=== PATIENT | female | born 1955 | race Caucasian/White ===

== ENCOUNTER → 2017-07-02 | Outpatient (CLI) | payer OTHER ==
[~2017-07-02] MED LIST: ASPI-621 PO; GLUC15006 PO; OMEP-110 PO; RED600TA PO; ROSU20TA PO; TICA90TA PO
[2017-07-02 09:03] LABS: BASOPHILS # (AUTO) 0.03 x10^3/uL (0-0.1); BASOPHILS % (AUTO) 0 % (0-1); EOSINOPHILS # (AUTO) 0.14 x10^3/uL (0-0.4); EOSINOPHILS % (AUTO) 2 % (1-7); LYMPHOCYTES # (AUTO) 2.18 x10^3/uL (1-3.4); LYMPHOCYTES % (AUTO) 30 % (22-44); MD NO; MEAN CORPUSCULAR HEMOGLOBIN 29.7 pg (27.0-34.8); MEAN CORPUSCULAR HGB CONC 33.6 g/dL (32.4-35.8); MEAN CORPUSCULAR VOLUME 88.2 fL (80-100); MEAN PLATELET VOLUME 9.2 fL (7.4-10.4); MONOCYTES # (AUTO) 0.49 x10^3/uL (0.2-0.8); MONOCYTES % (AUTO) 7 % (2-9); NEUTROPHILS # (AUTO) 4.34 x10^3/uL (1.8-6.8); NEUTROPHILS % (AUTO) 61 % (42-75); PLATELET COUNT 217 x10^3/uL (130-400); RED BLOOD COUNT 5.46 x10^6/uL (3.82-5.3); RED CELL DISTRIBUTION WIDTH 13.1 % (9.6-15.2)
[2017-07-02 09:13] LABS: ANION GAP 10 mmol/L (5-15); CALCIUM 8.9 mg/dL (8.5-10.1); CHLORIDE 106 mmol/L (98-107); CREATININE 0.91 mg/dL (0.55-1.02)
== END | disposition home or self-care (01) ==
LOC: STAR 08:00
PROVIDERS: ATTEND Internal Medicine Cardiovascular Disease
DX: Z01.818 Encounter for other preprocedural examination (principal); R94.31 Abnormal electrocardiogram [ECG] [EKG]; Z82.49 Family history of ischemic heart disease and other diseases of the circulatory system
CPT/HCPCS: 36415; 80048; 85025

== ENCOUNTER 2017-07-06 10:47 | Observation (INO) | payer OTHER ==
[~2017-07-06] VITALS: Ht 165.1 cm; Wt 89.0 kg
[~2017-07-06 10:47] MED LIST changes: -OMEP-110 PO; -ROSU20TA PO; -TICA90TA PO
[2017-07-06 11:21] VITALS: BP 141/100
[2017-07-06] MEDS ORDERED: OMEP-110 PO (11:55)
[2017-07-06] MEDS ORDERED: VERAPAMIL 2.5 MG/ML, 2ML ONE (12:58)
[2017-07-06] MEDS ORDERED: TICAGRELOR 90 MG TABLET ONE (12:58)
[2017-07-06] MEDS ORDERED: MIDAZOLAM 1 MG/ML, 5ML ONE (12:58)
[2017-07-06] MEDS ORDERED: NITROGLYCERIN 5 MG/ML, 10ML ONE (12:58)
[2017-07-06] MEDS ORDERED: BIVALIRUDIN 250 MG ONE (12:58)
[2017-07-06] MEDS ORDERED: FENTANYL PF 100 MCG/2ML ONE (12:58)
[2017-07-06] MEDS ORDERED: HEPARIN 1,000 UNITS/ML, 10ML ONE (12:59)
[2017-07-06] MEDS ORDERED: LIDOCAINE/PF 1%, 30ML ONE (12:59)
[2017-07-06] MEDS ORDERED: BIVALIRUDIN 250 MG in DEXTROSE 5% 50 ML IV SCH (13:52)
[2017-07-06] MEDS ORDERED: TICA90TA PO (14:26)
[2017-07-06] MEDS ORDERED: ROSU20TA PO (14:27)
[2017-07-06] MEDS: SODIUM CHLORIDE 0.9% 1,000 ML IV SCH ×2 (15:02→21:52)
[2017-07-06 19:00] VITALS: BP 164/93
[2017-07-06] MEDS: TICAGRELOR 90 MG TABLET PO SCH (22:13)
[2017-07-07 02:12] VITALS: BP 133/91
[2017-07-07] MEDS ORDERED: ASPIRIN 81 MG TABLET EC PO SCH (06:00)
[2017-07-07] MEDS: SODIUM CHLORIDE 0.9% 1,000 ML IV SCH (06:06)
[2017-07-07 07:30] VITALS: BP 135/84
[2017-07-07] MEDS ORDERED: OMEPRAZOLE 20 MG CAPSULE.DR PO SCH (07:30)
[2017-07-07] MEDS: TICAGRELOR 90 MG TABLET PO SCH (07:47)
== END 2017-07-07 11:20 | disposition home or self-care (01) ==
LOC: CACL 10:47 → 5SO 15:03 → CACL 17:32 → 5SO 17:33 → DCLOUNGE 07-07 10:43
PROVIDERS: ADMIT Internal Medicine Cardiovascular Disease; ATTEND Internal Medicine Cardiovascular Disease
DX: I25.110 Atherosclerotic heart disease of native coronary artery with unstable angina pectoris (principal); E78.5 Hyperlipidemia, unspecified; I99.8 Other disorder of circulatory system; Z82.49 Family history of ischemic heart disease and other diseases of the circulatory system
CPT/HCPCS: 93005; 93458; 99156; 99157; C1769; C1894; C9600; G0378; J0583; J1644; J2250; J3010; J3490; C1874; C1887; Q9967